=== PATIENT | male | born 1995 | race Caucasian/White ===

== ENCOUNTER 2020-07-19 11:24 | Inpatient (IN) | payer OTHER ==
[~2020-07-19] VITALS: Ht 177.8 cm; Wt 157.9 kg
--- NOTE | ~2020-07-19 | CON ---
[address] [address] CONSULTATION Name: RUT DEAN Room: [address] IN .R.#: [id number] Admission: 07/19/20 Attend Phys: Rut Blevins MD Discharge: Date of : 89 Report #: [id number] THIS REPORT FOR: //name// cc: Samreen Strong Ahmad W. DO ~ THIS REPORT FOR: //name// CC: Samreen Blevins DATE OF SERVICE: 07/21/2020 CONSULT REQUESTED BY: Dr. Freedman. INDICATION FOR CONSULTATION: Possible acute pulmonary embolism. HISTORY OF PRESENT ILLNESS: This is a 25-year-old gentleman. He has a history of smoking as well as marijuana use. The patient also has a history of heavy alcohol use and he is morbidly obese with a body mass index of 54. There is a clinical history consistent with obstructive sleep apnea. He has not been previously diagnosed. This time the patient is admitted initially on 07/19 presentation with shortness of breath. He is reported to have had marked swelling of lower extremities up to his abdominal wall. The patient had significant orthopnea upon initial presentation and was tachycardic as well. The patient did have a CT chest performed initially and there is a possible pulmonary embolism in the left mid lung field. There are also some small infiltrates noted. The patient has been treated with Zithromax and ceftriaxone. These medications have just been switched over to Zosyn. The patient has been on diuretics as well since he was initially admitted here. The patient has also been on a banana bag, which is at 100 mL an hour. The patient overall does feel better; however, remains significantly fluid overloaded. Still he remains tachycardic as well and did spike a fever up to 38.3 degrees Celsius this morning, the patient's blood pressure also remains on the higher side. The patient also has had abdominal imaging performed including an ultrasound yesterday as well as a CT today. There are changes consistent with esophageal varices as well as chronic liver disease. He may have cellulitis of the anterior abdominal wall as well. The patient does report some shortness of breath. He does have a cough. There is not much sputum. He does not have chest pain. There is no upper respiratory complaints. He has had daytime sleepiness as well as disturbed sleep at night. These complaints are at baseline. The patient answered to the negative for 12 questions for review of systems except as mentioned above. PAST MEDICAL HISTORY: Type 2 diabetes, hyperlipidemia, hypertension, morbid obesity, alcoholic hepatitis. The [place] [address] CONSULTATION Name: RUT DEAN Room: [address] IN ..#: [id number] Admission: 07/19/20 Attend Phys: Rut Blevins MD Discharge: Date of : 89 Report #: [id number] performed, which shows a left ventricular ejection fraction of 50-55% without significant elevation in right heart pressures. There is left ventricular hypertrophy though. SOCIAL HISTORY: Six shots of vodka a day. He states that he smokes, unable to quantify exactly, also does have a history of marijuana use. FAMILY HISTORY: Negative There is no pertinent family history. CURRENT MEDICATIONS: List in [facility] reviewed. HOME MEDICATIONS: In [facility] reviewed. PHYSICAL EXAMINATION: GENERAL: He is alert, awake and oriented. VITAL SIGNS: He is tachycardic, heart rate is 112, blood pressure elevated to 160/98. His respiratory rate is around 19. He did have a high-grade fever of 38.3 earlier. His temperature is 37.0 now. His body mass index is elevated to 54. HEENT: Head is normocephalic and atraumatic. Pupils are equal and reactive. There is no throat erythema, narrow airway Mallampati 4. NECK: Does not show raised JVP, asymmetry, mass or lymph nodes. CHEST: Symmetrical expansion on inspection and palpation. On auscultation, breath sounds are bilaterally equal but decreased. I do not hear any added sounds. HEART: Regular, tachycardia noted. No murmur. ABDOMEN: Significantly distended. There is vague tenderness in palpation of the anterior abdominal wall. EXTREMITIES: Lower extremities show 1+ edema bilaterally. There is no calf tenderness. SKIN: Dry and intact. NEUROLOGICAL: Moves all extremities bilaterally equally and spontaneously with no focal deficit identified. LABORATORY DATA: The patient's CT of the chest performed 2 days ago is reviewed. There is suspicion of a pulmonary embolism. There are small infiltrates. There is also a subcentimeter lung nodule noted. The patient's lab work including a CBC as well as chemistries are in [facility] and these are reviewed. Coagulation studies also in [facility] reviewed. Toxicology screen was negative on admission. Urinalysis in [facility] reviewed. COVID-19 screen initially was negative. ASSESSMENT/PLAN: 1. Acute respiratory insufficiency. Primarily, this appears to be secondary to fluid overload in the background of morbid obesity. Certainly, it is possible that there is a small pulmonary embolus as well. In addition, [place] [address] CONSULTATION Name: RUT DEAN Room: [address] IN [facility]#: [id number] Admission: 07/19/20 Attend Phys: Rut Blevins MD Discharge: Date of : 93 Report #: [id number] infiltrates noted and there likely is a component of bronchospasm as well. He is on DuoNeb, I will go ahead and give him 2 doses of Solu-Medrol as well and then follow response. 2. Obstructive sleep apnea/morbid obesity on clinical grounds. He does appear to have obstructive sleep apnea, I will go ahead and place him on a BiPAP while asleep. He will benefit from a sleep study later as an outpatient as well as weight loss. 3. Possible acute pulmonary embolism. He is on anticoagulation at this time. He received IV dye earlier today. I will perhaps await 24-48 hours and then repeat a CTA chest and then see if we see the same finding again, in the meantime it does appear reasonable to continue anticoagulation. 4. Pulmonary infiltrates/fever. There are some small pulmonary infiltrates noted. The fever; however, does appear to be out of proportion to this. The CT however is 2 days' old. I do not see any obvious progression on the CT of the abdomen and pelvis in the lower lung anders today. For now, we will continue with Zosyn. We will do blood cultures, I will go ahead and repeat COVID-19 antigen as well. 5. Fluid overload/chronic liver disease. He does appear to be fluid overloaded still, will continue with current diuretics. We will give him more potassium, I will discontinue his banana bag, which will reduce fluid intake significantly and then follow response. If needed, he will likely tolerate increased doses of diuretics. 6. Esophageal varices. I did order Protonix for gastrointestinal prophylaxis. I understand the plan per the GI service is to perform an EGD tomorrow. Thanks for this consultation. By: 1540 [id number] Gaviria MD /nt
[2020-07-19 11:31] VITALS: BP 159/95
[2020-07-19 12:34] LABS: ABSOLUTE BASOPHILS 0.1 thou/uL (0.0-0.2); ABSOLUTE EOSINOPHILS 0.4 thou/uL (0.0-0.7); ABSOLUTE LYMPHOCYTES 1.1 thou/uL (0.8-5.3); ABSOLUTE MONOCYTES 0.7 thou/uL (0.0-1.2); ABSOLUTE NEUTROPHILS 11.6 thou/uL (1.6-8.1); HEMOGLOBIN 11.3 gm/dL (14.0-18.0); LYMPHOCYTES 7.8 %; MCH 34.9 pg (26.0-34.0); MCHC 34.4 g/dL (28.0-37.0); MCV 101.4 fL (80.0-100.0); MONOCYTES 4.9 %; MPV 7.9 fl. (7.2-11.1); NUCLEATED RBCS 0 /100WBC; PLATELET COUNT* 213 thou/uL (150-400); POLYS 83.3 %; RBC 3.25 mil/uL (4.50-6.00); RDW-CV 14.7 % (10.5-14.5); WBC 13.9 thou/uL (4.0-11.0)
[2020-07-19] MEDS ORDERED: GLYBURIDE METFORMIN (12:37)
[2020-07-19] MEDS ORDERED: LIPITOR10 MG PO (12:37)
[2020-07-19] MEDS ORDERED: LOSARTAN POTASS50 MG PO (12:37)
[2020-07-19 12:41] LABS: ICTOTEST (BILI CONFIRMATORY) Negative (Negative); URINE BILIRUBIN 1+ (Negative); URINE BLOOD NEGATIVE (Negative); URINE CLARITY CLEAR; URINE COLOR YELLOW; URINE GLUCOSE-RANDOM NEGATIVE (Negative); URINE KETONES NEGATIVE (Negative); URINE LEUKOCYTES-REFLEX TRACE (Negative); URINE NITRITE-REFLEX NEGATIVE (Negative); URINE PROTEIN NEGATIVE (Negative); URINE SPECIFIC GRAVITY 1.015 (1.005-1.030); URINE UROBILINOGEN >= 8.0 E.U./dl (0.2-1.0)
[2020-07-19 12:45] LABS: CALCIUM 9.1 mg/dL (8.5-10.1); CREATININE 0.8 mg/dL (0.6-1.3); POTASSIUM 3.4 mmol/L (3.5-5.1)
[2020-07-19 12:50] LABS: AMP/METHAMP Negative (Negative); BACTERIA-REFLEX 1-9 Few /HPF (None Seen); BARBITURATES Negative (Negative); BENZODIAZEPINES Negative (Negative); CASTS None Seen /LPF (None Seen); COCAINE Negative (Negative); CRYSTALS None Seen /LPF (None Seen); METHADONE Negative (Negative); MUCUS None Seen strn/LPF (None Seen); OPIATES Negative (Negative); PCP Negative (Negative); SQUAMOUS 0-3 Few /LPF (0-3); THC Negative (Negative); URINE RBC 3-10 Few /HPF (0-2); URINE WBC-REFLEX 0-5 Rare /HPF (0-5)
[2020-07-19 12:56] LABS: ALBUMIN 3.4 g/dL (3.4-5.0); TOTAL BILIRUBIN 3.3 mg/dL (<0.1-1.0); TOTAL PROTEIN 7.8 g/dL (6.4-8.2)
[2020-07-19 13:04] LABS: ACETAMINOPHEN < 2 ug/mL (10-30); ALCOHOL < 10 mg/dL (<10)
[2020-07-19 13:05] LABS: SALICYLATE < 2.8 mg/dL (2.8-20.0)
[2020-07-19 15:36] LABS: APTT 30.8 Seconds (25.0-31.3); INR 1.3; PROTIME 12.9 Seconds (9.20-11.50)
[2020-07-19 18:15] VITALS: BP 128/68
[2020-07-19 18:43] VITALS: BP 143/71
[2020-07-19 20:00] VITALS: BP 144/58
[2020-07-20 00:33] VITALS: BP 145/92
[2020-07-20 03:06] LABS: GLYCOHEMOGLOBIN (HGB A1C) 8.4 % (4.8-5.6)
[2020-07-20 04:31] VITALS: BP 136/60
[2020-07-20 04:55] LABS: HEMATOCRIT 30.8 % (42.0-52.0); HEMOGLOBIN 10.4 gm/dL (14.0-18.0); MCH 34.4 pg (26.0-34.0); MCHC 33.8 g/dL (28.0-37.0); MPV 8.1 fl. (7.2-11.1); RBC 3.02 mil/uL (4.50-6.00); RDW-CV 14.8 % (10.5-14.5); WBC 13.4 thou/uL (4.0-11.0)
[2020-07-20 05:02] LABS: CALCIUM 8.4 mg/dL (8.5-10.1); CREATININE 0.8 mg/dL (0.6-1.3); POTASSIUM 3.4 mmol/L (3.5-5.1)
[2020-07-20 05:05] LABS: INR 1.3; PROTIME 13.6 Seconds (9.20-11.50)
[2020-07-20 05:06] LABS: ALBUMIN 3.1 g/dL (3.4-5.0); MAGNESIUM 1.2 mg/dL (1.8-2.4); TOTAL BILIRUBIN 2.8 mg/dL (<0.1-1.0); TOTAL PROTEIN 7.1 g/dL (6.4-8.2)
[2020-07-20 08:00] VITALS: BP 168/82
[2020-07-20 09:08] LABS: HEPATITIS B SURFACE AG Negative (Negative)
--- NOTE | 2020-07-20 09:30 | EKG ---
[place] [address] ELECTROCARDIOGRAM REPORT Name: RUT DEAN Room: [address] ADM IN [facility].#: [id number] Admission: 07/19/20 Attend Phys: Rut Blevins, Discharge: Date of : 89 Date of Service: 07/19/20 1230 Report #: [id number] THIS REPORT FOR: //name// [facility] ED Test Date: 2020-07-19 Test Time: 12:30:49 Pat Name: RUT DEAN Department: Room: [facility] Gender: M Business Process Specialist: [facility] : 1995 Requested By: Anca Caballero Order Number: [id number] MD: Richy Diallo Measurements Intervals [place] Rate: 118 P: 43 WI: 141 QRS: 34 QRSD: 100 T: 24 QT: 348 QTc: 488 Interpretive Statements Sinus tachycardia Borderline prolonged QT interval Baseline wander in lead(s) III No previous ECG available for comparison Electronically Signed On 07-20-2020 9:30:43 CDT by Richy Diallo [email or web address] <ELECTRONICALLY SIGNED> By: Richy Diallo MD, [facility] 07/20/20 0930 1230 1230 Richy Diallo MD, [facility] /EPI
[2020-07-20 09:39] LABS: CHOLESTEROL 138 mg/dL (<200); HDL CHOLESTEROL 16 mg/dL (>40); LDL CHOLESTEROL 92 mg/dL (<100); SERUM ASSESSMENT Clear; TC:HDL 8.6 Ratio (Not establshd); TRIGLYCERIDE 150 mg/dL (<150); VLDL 30 mg/dL (<40)
[2020-07-20 12:00] VITALS: BP 114/91
[2020-07-20 16:28] VITALS: BP 128/84
[2020-07-20 20:00] VITALS: BP 127/78
[2020-07-21 00:51] VITALS: BP 163/78
[2020-07-21 04:00] VITALS: BP 147/85
[2020-07-21 05:08] LABS: HEMATOCRIT 31.6 % (42.0-52.0); HEMOGLOBIN 10.8 gm/dL (14.0-18.0); MCH 34.8 pg (26.0-34.0); MCHC 34.3 g/dL (28.0-37.0); MCV 101.6 fL (80.0-100.0); MPV 8.1 fl. (7.2-11.1); RBC 3.11 mil/uL (4.50-6.00); WBC 13.2 thou/uL (4.0-11.0)
[2020-07-21 05:18] LABS: INR 1.2; PROTIME 12.7 Seconds (9.20-11.50)
[2020-07-21 05:19] LABS: ALBUMIN 3.2 g/dL (3.4-5.0); CALCIUM 8.4 mg/dL (8.5-10.1); CREATININE 0.7 mg/dL (0.6-1.3); MAGNESIUM 1.9 mg/dL (1.8-2.4); POTASSIUM 3.4 mmol/L (3.5-5.1); TOTAL BILIRUBIN 2.9 mg/dL (<0.1-1.0); TOTAL PROTEIN 7.4 g/dL (6.4-8.2)
[2020-07-21 08:00] VITALS: BP 136/79
[2020-07-21 12:01] VITALS: BP 160/98
--- NOTE | 2020-07-21 13:37 | 2DMMODE ---
[place] [address] 2 D/M-MODE ECHOCARDIOGRAM Name: RUT DEAN Room: [address] IN .R.#: [id number] Admission: 07/19/20 Attend Phys: Rut Blevins, Discharge: Date of : 89 Date of Service: 07/21/20 1336 Report #: [id number] THIS REPORT FOR: cc: Samreen Strong Ahmad W. DO Blick,Richy Stern MD [facility] ~ APPROVED REPORT Study performed: 07/21/2020 09:59:09 EXAM: Comprehensive 2D, Doppler, and color-flow Echocardiogram Patient Location: Bedside BSA: 2.75 HR: 110 bpm BP: 136/79 mmHg Other Information Study Quality: Technically Limited Indications Dyspnea 2D Dimensions IVSd: 16.69 (7-11mm) LVOT Diam: 21.92 (18-24mm) LVDd: 64.38 mm PWd: 14.94 (7-11mm) Ascending Ao: 29.75 (22-36mm) LVDs: 37.22 (25-40mm) Aortic Root: 27.93 mm Volumes Left Atrial Volume (Systole) LA ESV Index: 30.70 mL/m2 Aortic Valve AoV Peak Naif.: 1.77 m/s AO Peak Gr.: 12.56 mmHg LVOT Max P.87 mmHg AO Mean Gr.: 7.96 mmHg LVOT Mean P.06 mmHg LVOT Max V: 1.40 m/s AO V2 VTI: 32.89 cm LVOT Mean V: 0.94 m/s MARKY (VTI): 2.91 cm2 LVOT V1 VTI: 25.34 cm Mitral Valve MV Mean Gr.: 2.56 mmHg E/A Ratio: 4.57 [place] [address] 2 D/M-MODE ECHOCARDIOGRAM Name: RUT DEAN Room: [address] IN [facility].#: [id number] Admission: 07/19/20 Attend Phys: Rut Blevins, Discharge: Date of : 89 Date of Service: 07/21/20 1336 Report #: [id number] MV Decel. Time: 101.13 ms MV E Max Naif.: 1.13 m/s MV PHT: 29.33 ms MVA (PHT): 7.50 cm2 TDI E/Lateral E': 7.06 E/Medial E': 6.65 Medial E' Naif.: 0.17 m/s Lateral E' Naif.: 0.16 m/s Pulmonary Valve PV Peak Naif.: 1.43 m/s PV Peak Gr.: 8.18 mmHg Left Ventricle The left ventricle is normal size. There is normal LV segmental wall motion. Mild concentric left ventricular hypertrophy. Left ventricular systolic function is normal. The left ventricular ejection fraction is within the normal range. LVEF is 50-55%. Right Ventricle Right ventricle is dilated. The right ventricular systolic function is normal. Atria Left atrium is mildly dilated. Right atrium is dilated. Aortic Valve The aortic valve is normal in structure. No aortic regurgitation is present. There is no aortic valvular stenosis. Mitral Valve The mitral valve is normal in structure. There is no mitral valve regurgitation noted. No evidence of mitral valve stenosis. Tricuspid Valve The tricuspid valve is normal in structure. There is trace tricuspid valve regurgitation noted. Pulmonic Valve The pulmonary valve is normal in structure. There is no pulmonic valvular regurgitation. Great Vessels The aortic root is normal in size. [place] [address] 2 D/M-MODE ECHOCARDIOGRAM Name: RUT DEAN Mary Room: [address] IN [facility]#: [id number] Admission: 07/19/20 Attend Phys: Rut Blevins, Discharge: Date of : 89 Date of Service: 07/21/20 1336 Report #: [id number] Pericardium There is no pericardial effusion. <Conclusion> Mild concentric left ventricular hypertrophy. LVEF is 50-55%. Left atrium is mildly dilated. <ELECTRONICALLY SIGNED> By: Richy Diallo MD, FACC 07/21/20 1336 35 35 Richy Diallo MD, [facility] /INF
[2020-07-21 19:26] VITALS: BP 148/81
[2020-07-21 20:00] VITALS: BP 131/86
[2020-07-22 00:49] VITALS: BP 142/89
[2020-07-22 04:10] VITALS: BP 137/83
[2020-07-22 04:48] VITALS: BP 142/89
[2020-07-22 06:05] LABS: HEMATOCRIT 36.3 % (42.0-52.0); HEMOGLOBIN 11.9 gm/dL (14.0-18.0); MCH 33.8 pg (26.0-34.0); MCHC 32.7 g/dL (28.0-37.0); MCV 103.3 fL (80.0-100.0); MPV 8.3 fl. (7.2-11.1); NUCLEATED RBCS 0 /100WBC; PLATELET COUNT* 248 thou/uL (150-400); RBC 3.52 mil/uL (4.50-6.00); RDW-CV 15.2 % (10.5-14.5); WBC 16.7 thou/uL (4.0-11.0)
[2020-07-22 06:21] LABS: ALBUMIN 3.4 g/dL (3.4-5.0); CALCIUM 9.2 mg/dL (8.5-10.1); CREATININE 0.7 mg/dL (0.6-1.3); POTASSIUM 4.1 mmol/L (3.5-5.1); TOTAL BILIRUBIN 3.3 mg/dL (<0.1-1.0); TOTAL PROTEIN 8.1 g/dL (6.4-8.2)
[2020-07-22 06:35] LABS: PHOSPHORUS* 3.7 mg/dL (2.5-4.9)
[2020-07-22 07:31] LABS: ABSOLUTE LYMPHOCYTES 2.3 thou/uL (0.8-5.3); ABSOLUTE MONOCYTES 0.3 thou/uL (0.0-1.2); PLATELET ESTIMATE ADEQUATE
[2020-07-22 08:30] VITALS: BP 144/83
[2020-07-22 13:08] LABS: ANA INTERPRETATION Negative (Negative)
[2020-07-22 17:25] VITALS: BP 155/67
[2020-07-22 20:00] VITALS: BP 150/84
[2020-07-23 00:43] VITALS: BP 113/52
[2020-07-23 04:00] VITALS: BP 125/57
[2020-07-23 05:20] LABS: ABSOLUTE BASOPHILS 0.1 thou/uL (0.0-0.2); ABSOLUTE EOSINOPHILS 0.2 thou/uL (0.0-0.7); ABSOLUTE LYMPHOCYTES 1.4 thou/uL (0.8-5.3); ABSOLUTE MONOCYTES 0.8 thou/uL (0.0-1.2); ABSOLUTE NEUTROPHILS 12.5 thou/uL (1.6-8.1); BASOPHILS 0.6 %; EOSINOPHILS 1.5 %; HEMATOCRIT 35.9 % (42.0-52.0); HEMOGLOBIN 11.9 gm/dL (14.0-18.0); LYMPHOCYTES 9.2 %; MCH 34.6 pg (26.0-34.0); MCHC 33.3 g/dL (28.0-37.0); MCV 103.9 fL (80.0-100.0); MONOCYTES 5.5 %; MPV 8.4 fl. (7.2-11.1); NUCLEATED RBCS 0 /100WBC; PLATELET COUNT* 273 thou/uL (150-400); POLYS 83.2 %; RBC 3.46 mil/uL (4.50-6.00); RDW-CV 15.3 % (10.5-14.5)
[2020-07-23 05:39] LABS: ALBUMIN 3.5 g/dL (3.4-5.0); CALCIUM 9.6 mg/dL (8.5-10.1); CREATININE 0.8 mg/dL (0.6-1.3); POTASSIUM 3.4 mmol/L (3.5-5.1); TOTAL BILIRUBIN 2.3 mg/dL (<0.1-1.0); TOTAL PROTEIN 7.7 g/dL (6.4-8.2)
--- NOTE | 2020-07-23 07:38 | CON ---
[address] [address] CONSULTATION Name: RUT DEAN Room: [address] IN .R.#: [id number] Admission: 07/19/20 Attend Phys: Rut Blevins MD Discharge: Date of : 89 Report #: [id number] THIS REPORT FOR: //name// cc: Samreen Strong Ahmad W. DO ~ THIS REPORT FOR: //name// CC: Samreen Vargas DICTATED BY: Judy Mathew [facility] DATE OF SERVICE: 07/20/2020 PRIMARY CARE PHYSICIAN: Samreen Strong DO Please note at the time of this dictation, the patient was seen and physically examined by myself. REASON FOR CONSULTATION: Alcoholic hepatitis. HISTORY OF PRESENT ILLNESS: This 25-year-old morbidly obese male presented to the ER after seeing his PCP for increased swelling in his lower extremities and abdomen and be in more short of breath. The patient admits that he has been a heavier drinker in the past. He did abstain for a little bit and then he took drinking up again. He is currently doing 6 shots of vodka daily. He smokes 1-2 packs of cigarettes a week and occasionally will do marijuana. He stated he started swelling back in November, but has significantly gotten worse in May, in which he has had a 50-pound weight gain since May. He has had increased fatigue and shortness of breath that is getting worse and very winded walking across the yard, which prompted him to come in to be seen. The patient has never had any evaluation GI aguilar. He denies any nausea or vomiting. No fever or chills. He states his bowels move typically on a daily basis with no bright red blood or black noted. ALLERGIES: ASPIRIN. MEDICATIONS: From home, he was just recently started on medications for his diabetes, glyburide and metformin, losartan and atorvastatin. PAST MEDICAL HISTORY: Type 2 diabetes, hyperlipidemia, hypertension, morbid obesity, and alcoholic hepatitis. PAST SURGICAL HISTORY: [place] [address] CONSULTATION Name: RUT DEAN Room: [address] IN [facility]#: [id number] Admission: 07/19/20 Attend Phys: Rut Blevins MD Discharge: Date of : 89 Report #: [id number] FAMILY HISTORY: Negative for any GI or female cancers. SOCIAL HISTORY: Alcohol use; 6 shots of vodka daily. Denies any tobacco use. He smokes 1-2 packs a week and also smokes marijuana routinely as well. REVIEW OF SYSTEMS: Twelve-point review of systems is essentially negative except what is mentioned in the HPI. PHYSICAL EXAMINATION: VITAL SIGNS: Temperature 37.1, pulse 117, respirations 20, blood pressure 168/82. HEART: Regular rate and rhythm. LUNGS: Diminished bilaterally with some crackles. ABDOMEN: Distended and somewhat firm with positive bowel sounds noted in all 4 quadrants. Lower extremity edema noted bilaterally. LABORATORY DATA: Hemoglobin 10.4, white count is 13.4, platelets 197,000. Total bilirubin on admission was 3.3, he is down to 2.8. Alkaline phosphatase was 377, he is down to 330. ALT was 84, he is down to 44. AST was 122, down to 92. Albumin is 3.1, total protein 7.1, GGT was 629. PT 13.6, INR 1.3, GFR is 96. His discriminant function is 10. CT scan of his chest showed fatty liver with hepatomegaly and some fluid noted around the liver and bilateral atelectasis noted. IMPRESSION: 1. Abdominal pain. 2. Abdominal distention, increased weight gain of 50 pounds since May. 3. Elevated liver function tests. 4. Anemia. 5. Obesity. 6. Alcohol abuse. 7. Leukocytosis. 8. Pneumonia. PLAN: 1. Ultrasound of the abdomen today. 2. Weigh daily. 3. We will check acute hepatitis panel as well as PORFIRIO, ASMA and AMA. Depending on the above results, we will make further recommendations in regard to that. The patient may also need a paracentesis depending on the results of the [place] [address] CONSULTATION Name: RUT DEAN Room: [address] [place] [facility]#: [id number] Admission: 07/19/20 Attend Phys: Rut Blevins MD Discharge: Date of : 89 Report #: [id number] Thank you for allowing us to participate in this patient's care. Please do not hesitate to call with any questions in regard to this consult. <ELECTRONICALLY SIGNED> By: Brian Hernandez DO 07/23/20 0738 1029 [id number] Hernandez DO /nt
[2020-07-23 08:00] VITALS: BP 121/68
[2020-07-23 13:39] VITALS: BP 119/67
[2020-07-23 16:00] VITALS: BP 120/60
[2020-07-23 19:40] VITALS: BP 140/79
[2020-07-24 08:18] VITALS: BP 157/90
[2020-07-24] MEDS ORDERED: VITAMIN B-1100 M1 PO (08:56)
[2020-07-24] MEDS ORDERED: NEXIUM40 MG PO (08:56)
[2020-07-24] MEDS ORDERED: SPIRONOLACTONE25 MG PO (08:56)
[2020-07-24] MEDS ORDERED: LASIX 40 MG TAB40 M2 PO (08:57)
[2020-07-24] MEDS ORDERED: AUGMENTIN 875-1 EACH PO (08:58)
[2020-07-24 11:26] VITALS: BP 157/90
[2020-07-24 12:40] VITALS: BP 157/90
[2020-07-27 10:08] LABS: ANTI-DNA SCREEN <1 IU/mL (0-9); ANTI-RNP <0.2 AI (0.0-0.9)
== END 2020-07-24 12:46 | disposition home or self-care (01) | DRG 441 ==
LOC: M.ERS 11:24 → M.TBA-ER 15:42 → M.2W 15:42 → M.ORTHSURG 07-23 13:44
PROVIDERS: Internal Medicine; Internal Medicine Critical Care Medicine; Internal Medicine Gastroenterology; Nurse Practitioner Family; ADMIT Internal Medicine; ATTEND Internal Medicine
PROC: 0DJ08ZZ Inspection of Upper Intestinal Tract, Via Natural or Artificial Opening Endoscopic (ICD-10-PCS; principal; 2020-07-22)
DX: K72.00 Acute and subacute hepatic failure without coma (principal); I26.93 Single subsegmental thrombotic pulmonary embolism without acute cor pulmonale; J18.9 Pneumonia, unspecified organism; R65.10 Systemic inflammatory response syndrome (SIRS) of non-infectious origin without acute organ dysfunction; Z68.42 Body mass index [BMI] 45.0-49.9, adult; I85.00 Esophageal varices without bleeding; K70.11 Alcoholic hepatitis with ascites; E66.01 Morbid (severe) obesity due to excess calories; E78.5 Hyperlipidemia, unspecified; F10.10 Alcohol abuse, uncomplicated; Y90.9 Presence of alcohol in blood, level not specified; K21.00 Gastro-esophageal reflux disease with esophagitis, without bleeding; F17.210 Nicotine dependence, cigarettes, uncomplicated; D72.829 Elevated white blood cell count, unspecified; D64.9 Anemia, unspecified; G47.33 Obstructive sleep apnea (adult) (pediatric); E87.6 Hypokalemia; E11.65 Type 2 diabetes mellitus with hyperglycemia; F12.10 Cannabis abuse, uncomplicated; I10 Essential (primary) hypertension; R91.1 Solitary pulmonary nodule; Z20.828 Contact with and (suspected) exposure to other viral communicable diseases; Z88.8 Allergy status to other drugs, medicaments and biological substances; Z79.84 Long term (current) use of oral hypoglycemic drugs; Z79.899 Other long term (current) drug therapy; Z23 Encounter for immunization